=== PATIENT | male | born 1980 | race Caucasian/White ===

== ENCOUNTER 2022-06-17 11:17 | Emergency (ER) | payer OTHER ==
[2022-06-17] MEDS ORDERED: Amoxicillin/Potassium Clav 875 MG TAB ONE (11:56)
[2022-06-17] MEDS ORDERED: Boostrix 0.5 ML (Tdap) VIAL (>/=7 yrs of age) ONE (11:56)
[2022-06-17] MEDS ORDERED: Ibuprofen 800 MG TAB ONE (12:31)
== END 2022-06-17 12:10 ==
LOC: NAV ERS 11:17
DX: S68.521A Partial traumatic transphalangeal amputation of right thumb, initial encounter (principal); K21.9 Gastro-esophageal reflux disease without esophagitis; Z79.899 Other long term (current) drug therapy; W45.8XXA Other foreign body or object entering through skin, initial encounter
CPT/HCPCS: 90471; 90715